=== PATIENT | female | born 1975 | race American Indian/Alaskan Native ===

== ENCOUNTER 2020-07-02 15:59 | Emergency (ER) | payer SELFPAY ==
[2020-07-02] MEDS ORDERED: FAMOTIDINE 20 MG/2 ML INJ IV ONE (22:10)
[2020-07-02] MEDS ORDERED: SODIUM CHLORIDE 0.9% 1000 ML 1,000 ML IV ONE (22:11)
[2020-07-02] MEDS ORDERED: ONDANSETRON 4 MG/2 ML INJ IV ONE (22:11)
[2020-07-02] MEDS ORDERED: DICYCLOMINE 20 MG TAB PO ONE (22:15)
[2020-07-02 23:11] LABS: Basophils % (Auto) 0.6 % (0.0-1.8); Hematocrit 37.4 % (30.3-42.9); Hemoglobin 12.7 gm/dl (10.1-14.3); Lymphocytes # (Auto) 1.2 K/mm3 (1.2-5.4); Lymphocytes % (Auto) 15.9 % (13.4-35.0); Mean Corpuscular HGB Conc 34 % (30-34); Mean Corpuscular Volume 97 fl (79-97); Monocytes # (Auto) 0.7 K/mm3 (0.0-0.8); Platelet Count 195 K/mm3 (140-440); Red Blood Count 3.84 M/mm3 (3.65-5.03); Red Cell Distribution Width 14.3 % (13.2-15.2)
[2020-07-02 23:22] LABS: Alanine Aminotransferase 8 units/L (7-56); Blood Urea Nitrogen 14 mg/dL (7-17); Calcium 9.1 mg/dL (8.4-10.2); Hemolysis Index 2
[2020-07-02 23:23] LABS: BUN/Creatinine Ratio 20
[2020-07-03] MEDS ORDERED: MORPHINE 4 MG/1 ML INJ IV ONE (00:19)
[2020-07-03] MEDS ORDERED: ONDANSETRON 4 MG/2 ML INJ IV ONE (00:19)
[2020-07-03] MEDS ORDERED: SODIUM CHLORIDE 0.9% 1000 ML 1,000 ML IV ONE (00:19)
--- NOTE | 2020-07-03 01:22 | Cat Scan Report ---
CT ABDOMEN AND PELVIS WITH IV CONTRAST INDICATION: Patient complains of mid-upper abdominal pain.. COMPARISON: None available. TECHNIQUE: All CT scans at this facility use dose modulation, automated exposure control, iterative reconstructi on or weight based dosing, when appropriate, to reduce radiation dose to as low as reasonably achieva ble. FINDINGS: Lung Bases: No significant abnormality. Skeletal System: No acute abnormality. ABDOMEN: Liver: No significant abnormality. Gallbladder: No significant abnormality. Bile Ducts: No significant abnormality. Pancreas: No significant abnormality. Spleen: No significant abnormality. Adrenals: No significant abnormality. Right Kidney: No significant abnormality. Left Kidney: No significant abnormality. Upper GI tract: No significant abnormality. Lymph Nodes: No significant adenopathy. Aorta: No significant abnormality. Additional Findings: No significant abnormality. PELVIS: Colon: No acute abnormality. Urinary Bladder and Distal Ureters: No significant abnormality. Appendix: No significant abnormality. Lymph Nodes: No significant adenopathy. Additional Findings: There is a 2.9 cm left ovarian cyst. IMPRESSION: 1. No acute process in the abdomen or pelvis. 2. Incidental findings, as above. Signer Name: Ivan Moe MD Signed: 07/03/2020 1:17 AM Workstation Name: [id number]
--- NOTE | 2020-07-03 02:46 | Emergency Department Report ---
ED N/V/D HPI - General Chief complaint: Abdominal Pain Stated complaint: NAUSEA/VOMITING Source: patient Mode of arrival: Ambulatory Limitations: No Limitations - History of Present Illness Initial comments: Patient is a 45-year-old -[place] female with no past medical history who presents to the ED with complaint of acute onset persistent severe epigastric pain with intractable nausea and vomiting for the last 12 hours after eating at a restaurant 24 hours ago. Patient states that she has had multiple nausea and vomiting episodes and that she is unable to keep anything down because of nausea and vomiting and epigastric pain. Patient denies dizziness, syncope, fever, chills, cough, chest pain, shortness of breath, dysuria, urinary frequency and urgency, vaginal bleeding, vaginal discharge, cough, headache, or sore throat, nasal and sinus congestion MD complaint: nausea, vomiting, abdominal pain -: Sudden, hour(s) (12) Description of Vomiting: food contents Description of Diarrhea: other (NONE) Associated Abdominal Pain: Yes (Epigastric) Location: epigastric Radiation: none Severity: severe Pain Scale: 7 Quality: cramping, sharp Consistency: constant Improves with: none Worsens with: eating, vomiting Context: possible food poisoning Associated Symptoms: denies other symptoms, myalgias, loss of appetite, malaise, nausea/vomiting. denies: chest pain, cough, diaphoresis, fever/chills, headaches, rash, dysuria, shortness of breath, syncope, weakness - Related Data Previous Rx's Medication Instructions Recorded Last Taken Type Acetaminophen/Codeine [Tylenol 1 tab PO Q6H PRN #12 tab 07/03/20 Unknown Rx /Codeine # 3 tab] Dicyclomine [Bentyl] 20 mg PO Q6H PRN #30 tablet 07/03/20 Unknown Rx Famotidine [Pepcid] 20 mg PO BID #60 tablet 07/03/20 Unknown Rx Ondansetron [Zofran Odt] 4 mg PO Q6HR PRN #20 tab.rapdis 07/03/20 Unknown Rx Allergies Allergy/AdvReac Type Severity Reaction Status Date / Time No Known Allergies Allergy Unverified 07/02/20 22:32 ED Review of Systems ROS: Stated complaint: NAUSEA/VOMITING Other details as noted in HPI Constitutional: denies: chills, fever Eyes: denies: eye pain, eye discharge, vision change ENT: denies: ear pain, throat pain Respiratory: denies: cough, shortness of breath, wheezing Cardiovascular: denies: chest pain, palpitations Endocrine: no symptoms reported Gastrointestinal: abdominal pain, nausea, vomiting. denies: diarrhea Genitourinary: denies: urgency, dysuria, discharge Musculoskeletal: denies: back pain, joint swelling, arthralgia Skin: denies: rash, lesions Neurological: denies: headache, weakness, paresthesias Psychiatric: denies: anxiety, depression Hematological/Lymphatic: denies: easy bleeding, easy bruising ED Past Medical Hx - Past Medical History Previous Medical History?: No - Surgical History Past Surgical History?: Yes Additional Surgical History: - Medications Home Medications: Home Medications Medication Instructions Recorded Confirmed Last Taken Type Acetaminophen/Codeine [Tylenol 1 tab PO Q6H PRN #12 tab 07/03/20 Unknown Rx /Codeine # 3 tab] Dicyclomine [Bentyl] 20 mg PO Q6H PRN #30 tablet 07/03/20 Unknown Rx Famotidine [Pepcid] 20 mg PO BID #60 tablet 07/03/20 Unknown Rx Ondansetron [Zofran Odt] 4 mg PO Q6HR PRN #20 tab.rapdis 07/03/20 Unknown Rx ED Physical Exam - General Limitations: No Limitations General appearance: alert, in no apparent distress - Head Head exam: Present: atraumatic, normocephalic, normal inspection - Eye Eye exam: Present: normal appearance, PERRL, EOMI Pupils: Present: normal accommodation - ENT ENT exam: Present: normal exam, normal orophraynx, mucous membranes moist, TM's normal bilaterally, normal external ear exam - Neck Neck exam: Present: normal inspection, full ROM - Respiratory Respiratory exam: Present: normal lung sounds bilaterally. Absent: respiratory distress, wheezes, rales, stridor, chest wall tenderness, accessory muscle use, decreased breath sounds, prolonged expiratory - Cardiovascular Cardiovascular Exam: Present: regular rate, normal rhythm, normal heart sounds. Absent: systolic murmur, diastolic murmur, rubs, gallop - GI/Abdominal GI/Abdominal exam: Present: soft, tenderness (Palpable epigastric tenderness), normal bowel sounds. Absent: guarding, rebound, hyperactive bowel sounds, hypoactive bowel sounds, mass - Extremities Exam Extremities exam: Present: normal inspection, full ROM, normal capillary refill - Back Exam Back exam: Present: normal inspection, full ROM. Absent: tenderness, CVA tenderness (R), CVA tenderness (L), muscle spasm, paraspinal tenderness - Neurological Exam Neurological exam: Present: alert, oriented X3, CN II-XII intact, normal gait, reflexes normal - Psychiatric Psychiatric exam: Present: normal affect, normal mood - Skin Skin exam: Present: warm, dry, intact, normal color. Absent: rash ED Course Vital Signs 07/02/20 07/03/20 16:36 01:03 Temperature 98.0 F Pulse Rate 65 Respiratory 20 18 Rate Blood Pressure 166/119 [Right] O2 Sat by Pulse 96 Oximetry ED Medical Decision Making - Lab Data Result diagrams: 07/02/20 22:25 07/02/20 22:25 - Radiology Data Radiology results: report reviewed, image reviewed Findings [facility] [address] [place] [address] Cat Scan Report Signed Patient: JUAN MIGUEL HARRISON MR#: [id number] : 1975 Acct:[id number] Age/Sex: 45 / F ADM Date: 07/02/20 Loc: ED Attending Dr: Ordering Physician: LURDES BARAJAS Date of Service: 07/03/20 Procedure(s): CT abdomen pelvis w con Accession Number(s): [id number] cc: LURDES BARAJAS CT ABDOMEN AND PELVIS WITH IV CONTRAST INDICATION: Patient complains of mid-upper abdominal pain.. COMPARISON: None available. TECHNIQUE: All CT scans at this facility use dose modulation, automated exposure control, iterative reconstruction or weight based dosing, when appropriate, to reduce radiation dose to as low as reasonably achievable. FINDINGS: Lung Bases: No significant abnormality. Skeletal System: No acute abnormality. ABDOMEN: Liver: No significant abnormality. Gallbladder: No significant abnormality. Bile Ducts: No significant abnormality. Pancreas: No significant abnormality. Spleen: No significant abnormality. Adrenals: No significant abnormality. Right Kidney: No significant abnormality. Left Kidney: No significant abnormality. Upper GI tract: No significant abnormality. Lymph Nodes: No significant adenopathy. Aorta: No significant abnormality. Additional Findings: No significant abnormality. PELVIS: Colon: No acute abnormality. Urinary Bladder and Distal Ureters: No significant abnormality. Appendix: No significant abnormality. Lymph Nodes: No significant adenopathy. Additional Findings: There is a 2.9 cm left ovarian cyst. IMPRESSION: 1. No acute process in the abdomen or pelvis. 2. Incidental findings, as above. Signer Name: Ivan Moe MD Signed: 07/03/2020 1:17 AM Workstation Name: [id number] Transcribed By: MAGED Dictated By: Ivan Moe MD Electronically Authenticated By: Ivan Moe MD Signed Date/Time: 07/03/20116 DD/ 2 TD/TT: - Medical Decision Making This is a 45-year-old -L[place] female with no past medical history who presents to the ED with complaint of acute onset persistent severe epigastric pain with intractable nausea and vomiting for the last 12 hours after eating at a restaurant 24 hours ago. Patient states that she has had multiple nausea and vomiting episodes and that she is unable to keep anything down because of nausea and vomiting and epigastric pain. Lab test results were reviewed and are all nonactionable. Patient was treated with 2 L of normal saline IV bolus x1, antiemetics, antacids and pain medications. Abdomen pelvis CT scan without contrast showed no acute abnormalities except for incidental finding of a left ovarian cyst measuring 2.9 cm. Patient however declined to give urine for urinalysis. Patient will discharge home on antiemetics and pain medications as well as antacids and was advised to maintain a clear liquid diet for 12 to 24 hours, take medications as needed for pain and antiemetics. Patient was advised to follow-up with her primary care physician in 3 to 5 days for reevaluation or return to the ED immediately if symptoms get worse. - Differential Diagnosis Gastroenteritis; gastritis; cholelithiasis; appendicitis; ovarian cyst; UTI Critical care attestation.: If time is entered above; I have spent that time in minutes in the direct care of this critically ill patient, excluding procedure time. ED Disposition Clinical Impression: Abdominal pain, acute, epigastric, Nausea and vomiting in adult patient, Viral gastroenteritis, Cyst of left ovary Disposition: -01 TO HOME OR SELFCARE Is pt being admited?: No Does the pt Need Aspirin: No Condition: Stable Instructions: Abdominal Pain (ED), Acute Nausea and Vomiting (ED), Gastro enteritis (ED), Ovarian Cyst (ED) Additional Instructions: All lab test results are unremarkable and nonactionable. Abdomen pelvis CT scan with contrast showed no acute abnormalities except for incidental finding of left ovarian cyst. Therefore maintain a clear liquid diet for 12 to 24 hours, take medication as advised, drink plenty of fluids and follow-up with your [facility] physician in 3 to 5 days for reevaluation. Return to the ED immediately if symptoms get worse. Prescriptions: Dicyclomine [Bentyl] 20 mg PO Q6H PRN #30 tablet PRN Reason: Abdominal pain Famotidine [Pepcid] 20 mg PO BID #60 tablet Acetaminophen/Codeine [Tylenol /Codeine # 3 tab] 1 tab PO Q6H PRN #12 tab PRN Reason: severe pain Ondansetron [Zofran Odt] 4 mg PO Q6HR PRN #20 tab.rapdis PRN Reason: Nausea Referrals: HEIDI WEEKS MD [Staff Physician] - 3-5 Days Forms: Work/School Release Form(ED) Time of Disposition: 02:49 Print Language: KYRGYZ
[2020-07-03 03:05] VITALS: BP 132/76
== END 2020-07-03 03:04 | disposition home or self-care (01) ==
LOC: ED 15:59
DX: A08.4 Viral intestinal infection, unspecified (principal); N83.202 Unspecified ovarian cyst, left side; R11.2 Nausea with vomiting, unspecified; R10.13 Epigastric pain; Z79.899 Other long term (current) drug therapy; Z98.890 Other specified postprocedural states
CPT/HCPCS: 36415; 74177; 80053; 84703; 85025; 96361; 96374; 96375; 96376; 99284; J2270; J2405; J7030; Q9967

== ENCOUNTER 2020-07-05 13:52 | Emergency (ER) | payer SELFPAY ==
[2020-07-05 16:49] LABS: Alanine Aminotransferase 12 units/L (7-56); Albumin 4.1 g/dL (3.9-5); BUN/Creatinine Ratio 11; Blood Urea Nitrogen 9 mg/dL (7-17); Calcium 8.7 mg/dL (8.4-10.2); Hemolysis Index 20
[2020-07-05 17:02] LABS: Hematocrit 38.1 % (30.3-42.9); Hemoglobin 12.9 gm/dl (10.1-14.3); Mean Corpuscular HGB Conc 34 % (30-34); Mean Corpuscular Volume 99 fl (79-97); Platelet Count 174 K/mm3 (140-440); Red Blood Count 3.86 M/mm3 (3.65-5.03); Red Cell Distribution Width 14.1 % (13.2-15.2)
[2020-07-05 17:57] LABS: Basophils % (Manual) 0 % (0.0-1.8); Giant Platelets Few; RBC Morphology Normal; Total Cells Counted 100
--- NOTE | 2020-07-05 19:21 | Ultrasound Report ---
US abdomen limited INDICATION: upper abdominal pain COMPARISON: CT abdomen dated same day FINDINGS: Pancreas: No significant abnormality identified in the visualized portions of the pancreas. Abdominal aorta: No significant abnormality. IVC: Normal. Liver: No significant abnormality. Gallbladder: No gallbladder stones identified. No gallbladder wall thickening. No pericholecystic fl uid. Bile ducts: The common bile duct measures 1.2 mm. Right Kidney: Not visualized Additional findings: No significant additional findings. IMPRESSION: No significant sonographic abnormality identified. Signer Name: Carter Rider MD Signed: 07/05/2020 7:17 PM Workstation Name: [id number]
[2020-07-05] MEDS ORDERED: ALUM-MAG HYDROXIDE-SIMETHICONE 200-200-20MG/5ML ORAL LIQD 30 ML PO ONE (19:27)
[2020-07-05] MEDS ORDERED: PANTOPRAZOLE 40 MG INJ IV ONE (19:27)
[2020-07-05] MEDS ORDERED: SODIUM CHLORIDE 0.9% 1000 ML 1,000 ML IV ONE (19:27)
[2020-07-05] MEDS ORDERED: LIDOCAINE VISCOUS 2% 15 ML ORAL LIQD PO ONE (19:27)
[2020-07-05] MEDS ORDERED: ONDANSETRON 4 MG/2 ML INJ IV ONE (19:28)
--- NOTE | 2020-07-05 20:47 | Emergency Department Report ---
ED General Adult HPI - General Chief complaint: Abdominal Pain Stated complaint: ABD PAIN Time Seen by Provider: 07/05/20 17:22 Source: patient Mode of arrival: Ambulatory Limitations: No Limitations - History of Present Illness Initial comments: 45-year-old -[place] female patient presents with complaints of continued abdominal pain and decreased appetite since she was seen here in the ED 07/02/2020. At that time, patient had a normal CT of the abdomen and normal white count on CBC. She denies any further vomiting, diarrhea, melena/hemato chezia, or fever/chills/sweats. She rates her pain as a 9/10 in severity and describes it as a throbbing pain. She denies pain radiating through to her back or with the pain being a tearing ripping type sensation. Patient also denies any chest pain, shortness of breath, cough, heavy alcohol use, or prior medical history. - Related Data Previous Rx's Medication Instructions Recorded Last Taken Type Acetaminophen/Codeine [Tylenol 1 tab PO Q6H PRN #12 tab 07/03/20 Unknown Rx /Codeine # 3 tab] Dicyclomine [Bentyl] 20 mg PO Q6H PRN #30 tablet 07/03/20 Unknown Rx Famotidine [Pepcid] 20 mg PO BID #60 tablet 07/03/20 Unknown Rx Ondansetron [Zofran Odt] 4 mg PO Q6HR PRN #20 tab.rapdis 07/03/20 Unknown Rx Pantoprazole [Protonix] 40 mg PO QDAY 14 Days #14 tablet 07/05/20 Unknown Rx Sucralfate [Carafate] 1 gm PO Q6HR 10 Days #40 tablet 07/05/20 Unknown Rx Allergies Allergy/AdvReac Type Severity Reaction Status Date / Time No Known Allergies Allergy Unverified 07/02/20 22:32 ED Review of Systems ROS: Stated complaint: ABD PAIN Other details as noted in HPI Constitutional: denies: chills, fever, malaise, weakness ENT: denies: throat pain Respiratory: denies: cough, shortness of breath Cardiovascular: denies: chest pain, palpitations, edema, syncope Endocrine: denies: excessive sweating Gastrointestinal: abdominal pain, nausea. denies: vomiting, diarrhea, constipation, hematemesis, hematochezia Genitourinary: denies: urgency, dysuria, frequency, hematuria Skin: denies: rash, lesions Neurological: denies: headache Hematological/Lymphatic: denies: swollen glands ED Past Medical Hx - Past Medical History Previous Medical History?: No - Surgical History Past Surgical History?: Yes Additional Surgical History: - Social History Smoking Status: Current Every Day Smoker - Medications Home Medications: Home Medications Medication Instructions Recorded Confirmed Last Taken Type Acetaminophen/Codeine [Tylenol 1 tab PO Q6H PRN #12 tab 07/03/20 Unknown Rx /Codeine # 3 tab] Dicyclomine [Bentyl] 20 mg PO Q6H PRN #30 tablet 07/03/20 Unknown Rx Famotidine [Pepcid] 20 mg PO BID #60 tablet 07/03/20 Unknown Rx Ondansetron [Zofran Odt] 4 mg PO Q6HR PRN #20 tab.rapdis 07/03/20 Unknown Rx Pantoprazole [Protonix] 40 mg PO QDAY 14 Days #14 tablet 07/05/20 Unknown Rx Sucralfate [Carafate] 1 gm PO Q6HR 10 Days #40 tablet 07/05/20 Unknown Rx ED Physical Exam - General Limitations: No Limitations General appearance: alert, in no apparent distress - Head Head exam: Present: atraumatic, normocephalic - Eye Eye exam: Present: normal appearance - ENT ENT exam: Present: mucous membranes moist - Neck Neck exam: Present: normal inspection - Respiratory Respiratory exam: Present: normal lung sounds bilaterally. Absent: respiratory distress - Cardiovascular Cardiovascular Exam: Present: regular rate, normal rhythm. Absent: systolic murmur, diastolic murmur, rubs, gallop - GI/Abdominal GI/Abdominal exam: Present: soft, distended, tenderness (Epigastric and right upper quadrant), normal bowel sounds. Absent: rebound, rigid - Extremities Exam Extremities exam: Present: normal inspection - Back Exam Back exam: Present: normal inspection - Neurological Exam Neurological exam: Present: alert, oriented X3 - Psychiatric Psychiatric exam: Present: normal affect, normal mood - Skin Skin exam: Present: warm, dry, intact, normal color. Absent: rash, cyanosis, diaphoretic, erythema, pallor, ecchymosis ED Course Vital Signs 07/05/20 14:38 Temperature 98.7 F Pulse Rate 70 Respiratory 20 Rate Blood Pressure 172/111 O2 Sat by Pulse 100 Oximetry ED Medical Decision Making - Lab Data Result diagrams: 07/05/20 15:59 07/05/20 15:59 Lab Results 07/05/20 07/05/20 07/05/20 Range/Units 15:59 15:59 18:09 WBC 3.2 L (4.5-11.0) K/mm3 RBC 3.86 (3.65-5.03) M/mm3 Hgb 12.9 (10.1-14.3) gm/dl Hct 38.1 (30.3-42.9) % MCV 99 H (79-97) fl MCH 34 H (28-32) pg MCHC 34 (30-34) % RDW 14.1 (13.2-15.2) % Plt Count 174 (140-440) K/mm3 Sharkey % (Auto) [employer] Add Manual Diff Complete Total Counted 100 Seg Neuts % (Manual) 51.0 (40.0-70.0) % Band Neutrophils % 0 % Lymphocytes % (Manual) 30.0 (13.4-35.0) % Reactive Lymphs % (Man) 0 % Monocytes % (Manual) 18.0 H (0.0-7.3) % Eosinophils % (Manual) 1.0 (0.0-4.3) % Basophils % (Manual) 0 (0.0-1.8) % Metamyelocytes % 0 % Myelocytes % 0 % Promyelocytes % 0 % Blast Cells % 0 % Nucleated RBC % Not Reportable Seg Neutrophils # Man 1.6 L (1.8-7.7) K/mm3 Band Neutrophils # 0.0 K/mm3 Lymphocytes # (Manual) 1.0 L (1.2-5.4) K/mm3 Abs React Lymphs (Man) 0.0 K/mm3 Monocytes # (Manual) 0.6 (0.0-0.8) K/mm3 Eosinophils # (Manual) 0.0 (0.0-0.4) K/mm3 Basophils # (Manual) 0.0 (0.0-0.1) K/mm3 Metamyelocytes # 0.0 K/mm3 Myelocytes # 0.0 K/mm3 Promyelocytes # 0.0 K/mm3 Blast Cells # 0.0 K/mm3 WBC Morphology Not Reportable Hypersegmented Neuts Not Reportable Hyposegmented Neuts Not Reportable Hypogranular Neuts Not Reportable Smudge Cells Not Reportable Toxic Granulation Not Reportable Toxic Vacuolation Not Reportable Dohle Bodies Not Reportable Pelger-Huet Anomaly Not Reportable Carlos Rods Not Reportable Platelet Estimate Not Reportable Clumped Platelets Not Reportable Plt Clumps, EDTA Not Reportable Large Platelets Not Reportable Giant Platelets Few Platelet Satelliting Not Reportable Plt Morphology Comment Not Reportable RBC Morphology Normal Dimorphic RBCs Not Reportable Polychromasia Not Reportable Hypochromasia Not Reportable Poikilocytosis Not Reportable Anisocytosis Not Reportable Microcytosis Not Reportable Macrocytosis Not Reportable Spherocytes Not Reportable Pappenheimer Bodies Not Reportable Sickle Cells Not Reportable Target Cells Not Reportable Tear Drop Cells Not Reportable Ovalocytes Not Reportable Helmet Cells Not Reportable [place] Bodies Not Reportable [place] Rings Not Reportable Tay Cells Not Reportable Bite Cells Not Reportable Crenated Cell Not Reportable Elliptocytes Not Reportable Acanthocytes (Spur) Not Reportable Rouleaux Not Reportable Hemoglobin C Crystals Not Reportable Schistocytes Not Reportable Malaria parasites Not Reportable Cyrus Bodies Not Reportable Hem Pathologist Commnt No Sodium 137 (137-145) mmol/L Potassium 3.5 L (3.6-5.0) mmol/L Chloride 100.3 (98-107) mmol/L Carbon Dioxide 22 (22-30) mmol/L Anion Gap 18 mmol/L BUN 9 (7-17) mg/dL Creatinine 0.8 (0.6-1.2) mg/dL Estimated GFR > 60 ml/min BUN/Creatinine Ratio 11 % Glucose 89 (65-100) mg/dL Calcium 8.7 (8.4-10.2) mg/dL Total Bilirubin 0.30 (0.1-1.2) mg/dL AST 17 (5-40) units/L ALT 12 (7-56) units/L Alkaline Phosphatase 38 (35-129) units/L Total Protein 7.4 (6.3-8.2) g/dL Albumin 4.1 (3.9-5) g/dL Albumin/Globulin Ratio 1.2 % Lipase 15 (13-60) units/L - Radiology Data Radiology results: report reviewed US abdomen limited INDICATION: upper abdominal pain COMPARISON: CT abdomen dated same day FINDINGS: Pancreas: No significant abnormality identified in the visualized portions of the pancreas. Abdominal aorta: No significant abnormality. IVC: Normal. Liver: No significant abnormality. Gallbladder: No gallbladder stones identified. No gallbladder wall thickening. No pericholecystic fluid. Bile ducts: The common bile duct measures 1.2 mm. Right Kidney: Not visualized Additional findings: No significant additional findings. IMPRESSION: No significant sonographic abnormality identified. - Medical Decision Making 45-year-old -[place] female patient presents with complaints of c ontinued abdominal pain and decreased appetite since she was seen here in the ED 07/02/2020. At that time, patient had a normal CT of the abdomen and normal white count on CBC. She denies any further vomiting, diarrhea, melena/hematochezia, or fever/chills/sweats. She rates her pain as a 9/10 in severity and describes it as a throbbing pain. She denies pain radiating through to her back or with the pain being a tearing ripping type sensation. Patient also denies any chest pain, shortness of breath, cough, heavy alcohol use, or prior medical history. On exam, there is right upper quadrant and epigastric tenderness to palpation. No elevated white count noted on CBC today. CMP and lipase are without acute abnormalities. Right upper quadrant ultrasound is negative for any acute findings. Patient given Protonix and GI cocktail and reports her symptoms have completely resolved and her pain is a 0/10 in severity at this time. Suspect gastritis. Recommend follow-up with PCP and possibly GI to rule out PUD or H. pylori. She is well-appearing, her vitals are normal, and she is stable for discharge home. Strict return precautions were discussed in detail with patient who verbalized understanding Critical care attestation.: If time is entered above; I have spent that time in minutes in the direct care of this critically ill patient, excluding procedure time. ED Disposition Clinical Impression: Elevated blood pressure reading Gastritis Qualifiers: Gastritis type: other gastritis Chronicity: acute Gastritis bleeding: presence of bleeding unspecified Qualified Code(s): K29.00 - Acute gastritis without bleeding Disposition: TO HOME OR SELFCARE Is pt being admited?: No Condition: Stable Instructions: Gastritis (ED), Diet for Ulcers and Gastritis (ED) Prescriptions: Sucralfate [Carafate] 1 gm PO Q6HR 10 Days #40 tablet Pantoprazole [Protonix] 40 mg PO QDAY 14 Days #14 tablet Referrals: [facility] [Provider Group] - 3-5 Days HEIDI WEEKS MD [Staff Physician] - 2-3 Days
[2020-07-05 21:16] VITALS: BP 166/98
[2020-07-05] MEDS ORDERED: BUPIVACAINE/PF (0.25%) 2.5 MG/ML 30 ML VIAL INFILTRATI ONE (22:03)
== END 2020-07-05 21:45 | disposition home or self-care (01) ==
LOC: ED 13:52
DX: K29.60 Other gastritis without bleeding (principal)
CPT/HCPCS: 36415; 76705; 80053; 83690; 85007; 85025; 99284; C9113; J2405; J7030